=== PATIENT | female | born 1980 | race Caucasian/White ===

== ENCOUNTER 2022-10-04 09:43 | Emergency (ER) | payer MEDICAID, SELFPAY ==
[2022-10-04] MEDS ORDERED: Clindamycin 150 MG CAP ONE (11:36)
== END 2022-10-04 12:00 | disposition home or self-care (01) ==
LOC: CSHERS 09:43
DX: L03.213 Periorbital cellulitis (principal); J01.90 Acute sinusitis, unspecified; F17.210 Nicotine dependence, cigarettes, uncomplicated
CPT/HCPCS: 99283

== ENCOUNTER 2023-05-17 10:37 | Emergency (ER) | payer OTHER, SELFPAY ==
[2023-05-17] MEDS ORDERED: Lidocaine 2% 6 ML (Jelly) SYR TOP SCH (12:45)
== END 2023-05-17 13:10 | disposition home or self-care (01) ==
LOC: CSHERS 10:37
DX: H60.92 Unspecified otitis externa, left ear (principal); F17.210 Nicotine dependence, cigarettes, uncomplicated; E78.5 Hyperlipidemia, unspecified; Z79.01 Long term (current) use of anticoagulants; Z79.82 Long term (current) use of aspirin
CPT/HCPCS: 99282